=== PATIENT | male | born 1965 | race Caucasian/White ===

== ENCOUNTER 2025-01-26 12:15 | Day surgery (SDC) | payer MEDICAID, SELFPAY ==
--- NOTE | 2025-01-23 08:16 | EKG_ITS ---
[facility] Test Date: 2025-01-23 Pat Name: NATACHA DRAKE Department: Room: - Gender: Male [employer]er: RONY : 1965 Requested By: Bob Berry Order Number: [id number] Reading MD: Bob Berry Measurements Intervals [place] Rate: 68 P: 66 MN: 155 QRS: 55 QRSD: 98 T: 71 QT: 338 QTc: 362 Interpretive Statements SINUS RHYTHM WITH MARKED SINUS ARRHYTHMIA MINIMAL VOLTAGE CRITERIA FOR LVH, CONSIDER NORMAL VARIANT [MEETS CRITERIA IN ONE OF: R(aVL), S(V1), R(V5), R(V5/V6)+S(V1)] No previous ECG available for comparison /store/S0/[id number]/ecg/[id number].pdf
[2025-01-23 11:46] LABS: Basophils # (Auto) 0.0 Thou/mm3 (0.0-0.2); Basophils % (Auto) 1 % (0-2.5); Eosinophils # (Auto) 0.2 Thou/mm3 (0.0-0.5); Eosinophils % (Auto) 4 % (0-10); Hematocrit 41.2 % (41.0-53.0); Hemoglobin 13.8 g/dL (13.5-16.0); Immature Granulocytes Auto 0.01 Thou/mm3 (0.00-0.00); Lymphocytes # (Auto) 1.5 Thou/mm3 (1.0-4.8); Lymphocytes % (Auto) 29 % (10-50); Mean Corpuscular HGB Conc 33.5 g/dl (31.0-37.0); Mean Corpuscular Hemoglobin 31.2 pg (25.0-35.0); Mean Corpuscular Volume 93 fL (80-100); Monocytes # (Auto) 0.9 Thou/mm3 (0.0-0.8); Monocytes % (Auto) 17 % (0-12); Neutrophils # (Auto) 2.5 Thou/mm3 (1.8-7.7); Neutrophils % (Auto) 48 % (37-80); Nucleated Red Blood Cell # 0.00 Thou/mm3 (0.00-0.00); Nucleated Red Blood Cell % 0 /100 WBC (0); Platelet Count 212 Thou/mm3 (140-440); RDW Standard Deviation 44.4 fL (35.1-43.9); Red Blood Count 4.42 Miln/mm3 (4.50-5.90); White Blood Count 5.2 Thou/mm3 (3.8-10.6)
[2025-01-23 11:59] LABS: Alanine Aminotransferase 88 U/L (10-49); Albumin, Serum 4.7 gm/dL (3.4-4.8); Albumin/Globulin Ratio 2.0 (1.2-2.2); Alkaline Phosphatase 55 U/L (46-116); Anion Gap 6 (7-16); Aspartate Amino Transferase 84 U/L (0-34); BUN/Creatinine Ratio 13 Ratio (12-20); Bilirubin,Total 0.7 mg/dL (0.3-1.2); Blood Urea Nitrogen 10 mg/dL (9-23); Calcium 9.5 mg/dL (8.3-10.6); Calcium (Corrected) 9.5 mg/dL (8.5-10.1); Carbon Dioxide 30.8 mMol/L (20.0-31.0); Chloride 102 mMol/L (98-107); Creatinine (Component) 0.8 mg/dL (0.6-1.3); Globulin 2.3 gm/dL (2.3-3.5); Glucose 94 mg/dL (74-106); INR 1.0 (0.9-1.3); Osmolality,Calculated 276 (275-295); Partial Thromboplastin Time 25.2 Seconds (22.0-36.0); Potassium 5.1 mMol/L (3.4-5.1); Prothrombin Time 10.2 Seconds (9.0-12.2); Sodium 139 mMol/L (136-145); Total Protein 7.0 gm/dL (5.7-8.2); eGFR > 60 See Note
[2025-01-23 14:34] VITALS: BMI 22.6
[2025-01-26 12:47] VITALS: BP 156/84; PULSE 86; RESP 15; TEMP 36.3; O2SAT 97; BMI 23.1
[2025-01-26 13:09] VITALS: BP 134/91; PULSE 77; RESP 16; O2SAT 98
[2025-01-26] MEDS: RINGERS LACTATED 1000 ML 1,000 ML 100 ML IV (13:09)
[2025-01-26 13:33] VITALS: BP 118/80; PULSE 85; RESP 14; TEMP 36.6; O2SAT 97
[2025-01-26 13:45] VITALS: BP 127/80; PULSE 71; RESP 19; O2SAT 98
--- NOTE | 2025-01-26 13:47 | SUR.PHASEII ---
1333: Pt received in [facility] via [facility]my. Report from Ayaka VELOZ and Dr. Olivo. Pt awake, conversing appropriately. Resp even, unlabored. VS stable. Denies pain.
[2025-01-26 13:55] VITALS: BP 129/71; PULSE 78; RESP 15; TEMP 36.7; O2SAT 97
--- NOTE | 2025-01-26 13:55 | SUR.PHASEII ---
1350: Pt has c/o abdominal pressure. Placed on left lateral side. Immediately began passing large amounts of flatus. 1356: Pt continues to pass flatus. Stated relief and pressure subsiding. Resp even, unlabored. VS stable. Denies pain.
--- NOTE | 2025-01-26 15:30 | SUR.PHASEII ---
1400: Pt stated pressure of abdomen is gone. VS stable. Denies pain. Sitting up tolerating po fluids with no difficulty swallowing and no n/v. 1420: Pt dressed and assisted to transport chair. Ambulation steady. Pt and stated understanding of discharge instructions. Pt discharged from [facility] in stable condition.
== END 2025-01-26 14:20 | disposition home or self-care (01) ==
PROVIDERS: Anesthesiology; PCP Nurse Practitioner Family; Referring Provider Surgery; Visit Provider Surgery
PROC: 0DJD8ZZ Inspection of Lower Intestinal Tract, Via Natural or Artificial Opening Endoscopic (ICD-10-PCS; CPT 45378; principal; 2025-01-26 13:00)
DX: Z12.11 Encounter for screening for malignant neoplasm of colon (principal); N40.0 Benign prostatic hyperplasia without lower urinary tract symptoms; I10 Essential (primary) hypertension; G40.909 Epilepsy, unspecified, not intractable, without status epilepticus; Z79.899 Other long term (current) drug therapy; Z79.82 Long term (current) use of aspirin; Z01.810 Encounter for preprocedural cardiovascular examination
CPT/HCPCS: 45378; 36415; 80053; 85025; 85610; 85730; 93005; A4649; J7120